=== PATIENT | female | born 1980 | race Caucasian/White ===

== ENCOUNTER 2019-07-20 10:53 | Emergency (ER) | payer OTHER, SELFPAY ==
[2019-07-20 11:05] VITALS: BP 137/77; PULSE 96; RESP 20; TEMP 37.2; O2SAT 98; BMI 41.1
--- NOTE | 2019-07-20 11:13 | ED_ITS ---
Entered by Amparo Lamar, acting as scribe for Essie Tolliver PA HPI - General Adult General: Chief complaint: General Medical Stated complaint: SORE THROAT Time Seen by Provider: 07/20/19 11:10 Source: patient and RN notes reviewed Mode of arrival: ambulatory Limitations: no limitations History of Present Illness: HPI narrative: 39 yo female presents to ED with complaints of a sore throat, headache, bilateral ear pain, intermittent fever and body aches. The patient's daughter was recently diagnosed with strep throat. The patient denies cough. MD complaint: sore throat Onset (ago): day(s) (2) Location: mouth Radiation: non-radiation Severity: severe Quality: aching and constant Pain Consistency: constant Relieving factors: none Exacerbating factors: none Associated symptoms: Reports fevers/chills and malaise; Deny chest pain, dyspnea, headache(s), nausea, rash, palpitations, syncope or vomiting Treatments prior to arrival: none Review of Systems Const: Reports: fever (subjective), chills, body aches and malaise Eyes: Denies: change in vision, blurry vision, photophobia, eye discomfort or eye discharge ENMT: Reports: enlarged tonsils and painful swallowing; Denies: swelling of lips/tongue, oral sores/lesions, ear discharge, nasal discharge, nasal congestion, post nasal drip or facial/sinus pain Card: Denies: chest pain, palpitations, irregular heart rhythm, edema, lightheadedness, syncope or pre-syncope Resp: Denies: shortness of breath, productive cough, non-productive cough or chest congestion GI: Denies: abdominal pain, nausea, vomiting or diarrhea Musc: Denies: neck pain or back pain Skin/Breast: Denies: rash Neuro: Denies: headache All/Imm: Denies: facial swelling or seasonal allergies PFSH ED PFSH: Statuses (acute, chronic, etc) shown below reflect problem list status as previously entered and may not be historically accurate Social History Smoking and tobacco status: never smoked Physical Exam Const: COMMON NORMALS: oriented x3, no limitations, alert and well nourished OTHER: looks like she doesn't feel well HENMT: COMMON NORMALS: normocephalic, head/scalp atraumatic, hearing grossly normal bilaterally, external ears normal, EAC's normal, TM's normal bilaterally, external nose normal and nasal mucous membranes and turbinates normal HEAD & SCALP: normocephalic and atraumatic FACE & SINUS: normal facial exam NOSE: external nose normal and nasal mucous membranes and turbinates normal EXTERNAL EAR: Yes external ears normal EXTERNAL AUDITORY CANAL: EAC's normal TYMPANIC MEMBRANE: TM's normal bilaterally MOUTH: oral and palatal mucosa normal THROAT: uvula midline and tonsils abnormal (bilateral erythema/swelling) Eye: COMMON NORMALS: PERRL and EOMs intact bilaterally PUPIL: Yes PERRL Neck/C-Spine: COMMON NORMALS: full ROM and no meningeal signs GENERAL: Yes lymphadenopathy (bilateral anterior cervical ) Resp: COMMON NORMALS: normal respiratory effort and clear to auscultation bilaterally AUSCULTATION: clear to auscultation bilaterally Cardio: COMMON NORMALS: regular rate and regular rhythm RATE: regular rate RHYTHM: regular rhythm Extremity: COMMON NORMALS: normal to inspection Neuro: COMMON NORMALS: oriented x3 SENSORIUM/ORIENTATION: Yes alert MEN INGEAL SIGNS: Yes no meningeal signs Skin: COMMON NORMALS: no rashes or lesions noted GENERAL SKIN EXAM: no rashes or lesions noted Course Vital Signs: Vital signs: Vital Signs Temperature 98.9 F 07/20/19 11:05 Pulse Rate 96 07/20/19 11:05 Respiratory Rate 20 H 07/20/19 11:05 Blood Pressure 137/77 07/20/19 11:05 Pulse Oximetry 98 07/20/19 11:05 MDM - General Adult Lab Data: Labs: Lab Results 07/20/19 07/20/19 Range/Units 11:20 11:20 Influenza Type A A g Negative (Negative) POC Influenza B Ag Negative (Negative) Group A Strep Rapi d Positive H (Negative) Discharge Plan Discharge Patient Disposition: Home, Self-Care Clinical Impression: Acute streptococcal pharyngitis Condition: Stable Discharge Orders: Discharge Order (Routine); Ordered 07/20/19 Ordered By: Essie Tolliver Referrals: Jim Albert DO [Family Provider] - Discharge Diet: Usual diet Discharge Activity: Increase activity as tolerated Coding Level of Care Code ED Inspector Eyeglass Frames for Chg Fwd The documentation recorded by the Brianda carcamo Valerie R accurately reflects the service I personally performed and the decisions made by Sharee zamudio Emily, DINA
[2019-07-20 11:37] LABS: Rapid Strep A Test Positive (Negative)
[2019-07-20 11:49] LABS: Influenza A by IFA Negative (Negative); Influenza B by IFA Negative (Negative)
[2019-07-20] MEDS: ibuprofen 600 mg Tablet PO (12:35)
[2019-07-20] MEDS: penicillin g (L-A) 1,200,000 unit/2 mL Syr 1200000 UNIT IM (12:35)
[2019-07-20 13:16] VITALS: PULSE 71; RESP 18; TEMP 37.9; O2SAT 96
== END 2019-07-20 13:17 | disposition home or self-care (01) ==
LOC: ER 12:09
PROVIDERS: Emergency Provider Physician Assistant; Family Provider Family Medicine
DX: J02.0 Streptococcal pharyngitis (principal)
CPT/HCPCS: 87804; 87880; 96372; 99282; 99283; J0561

== ENCOUNTER 2019-07-22 06:36 | Emergency (ER) | payer OTHER, SELFPAY ==
[2019-07-22 06:40] VITALS: BP 162/72; PULSE 91; RESP 18; TEMP 36.6; O2SAT 98; BMI 41.1
--- NOTE | 2019-07-22 06:49 | W.ED.GENADLT ---
HPI - General Adult General: Chief complaint: General Medical Stated complaint: DX WITH STREP AND NOT GETTING URSULA Time Seen by Provider: 07/22/19 06:49 History of Present Illness: HPI narrative: 39-year-old female seen 2 days ago with pharyngitis had a rapid strep test that was positive at that time flu test was negative patient was given a single dose of IM antibiotics. She presents today complaining of continued pain discomfort in her throat. She denies sweats chills or fever she is not had any rash. Associated symptoms: Deny chest pain, dyspnea, malaise, nausea, rash or vomiting Review of Systems Const: Denies: fever, chills, body aches, change in appetite, fatigue or malaise ENMT: Reports: throat pain, uvular edema, painful swallowing, hoarseness, nasal discharge and nasal congestion; Denies: ear pain Card: Denies: chest pain, edema, shortness of breath on exertion or shortness of breath when lying down Resp: Denies: shortness of breath, productive cough or non-productive cough GI: Denies: abdominal pain, nausea, vomiting, vomiting blood, coffee grounds in vomit, diarrhea, constipation, bloating, blood in stool or black tarry stool : Denies: flank pain, difficulty urinating, painful urination, urinary frequency or urinary urgency Skin/Breast: Denies: rash or itching PFSH ED PFSH: Statuses (acute, chronic, etc) shown below reflect problem list status as previously entered and may not be historically accurate Social History Smoking and tobacco status: never smoked Physical Exam Const: COMMON NORMALS: no apparent distress GENERAL APPEARANCE: cooperative and comfortable ORIENTATION/CONSCIOUSNESS: Yes awake, Yes oriented to person, Yes oriented to place and Yes oriented to time HENMT: COMMON NORMALS: normocephalic, head/scalp atraumatic, hearing grossly normal bilaterally, external ears normal, EAC's normal, TM's normal bilaterally, nasal mucous membranes and turbinates normal, moist oral mucous membranes and oropharynx normal HEAD & SCALP: normocephalic and atraumatic NOSE: nasal mucous membranes and turbinates normal EXTERNAL EAR: Yes external ears normal EXTERNAL AUDITORY CANAL: EAC's normal TYMPANIC MEMBRANE: TM's normal bilaterally THROAT: tonsils abnormal (Erythematous with exudate) bilateral and uvular edema Eye: COMMON NORMALS: PERRL, EOMs intact bilaterally, conjunctivae normal and no scleral icterus CONJUNCTIVA: Yes conjunctivae normal PUPIL: Yes PERRL Neck/C-Spine: COMMON NORMALS: full ROM, no lymphadenopathy, supple and no JVD Lymph: LYMPHATIC: no lymphadenopathy noted and no lymphedema noted Resp: COMMON NORMALS: normal respiratory effort, no retractions, no use of accessory muscles and clear to auscultation bilaterally AUSCULTATION: clear to auscultation bilaterally Cardio: COMMON NORMALS: no JVD, regular rate, regular rhythm and no murmurs RATE: regular rate RHYTHM: regular rhythm GI: COMMON NORMALS: soft to palpation and no hepatosplenomegaly AUSCULTATION: Yes normoactive bowel sounds PALPATION: Yes soft, No tender, No guarding and Yes no hepatosplenomegaly Extremity: COMMON NORMALS: normal to inspection, normal capillary refill, no clubbing, cyanosis or edema, no calf tenderness and no pedal edema Neuro: SENSORIUM/ORIENTATION: Yes oriented to person, Yes oriented to place and Yes oriented to time Skin: COMMON NORMALS: no rashes or lesions noted GENERAL SKIN EXAM: no rashes or lesions noted Course ED course: Patient given Toradol dexamethasone and clindamycin. We will go ahead and discharge her home with prednisone p.o. and a course of amoxicillin. Vital Signs: Vital signs: Vital Signs Temperature 97.9 F 07/22/19 06:40 Pulse Rate 80 07/22/19 10:39 Respiratory Rate 17 07/22/19 10:39 Blood Pressure 120/75 07/22/19 10:39 Pulse Oximetry 97 07/22/19 10:39 MDM - General Adult Lab Data: Labs: Lab Results 07/22/19 07/22/19 07/22/19 Range/Units 07:15 07:22 07:22 WBC 13.3 H (4.0-10.0) 10^3/ uL RBC 3.92 L (4.1-5.3) 10^6/u L Hgb 11.9 (11.5-15.3) g/dL Hct 36.7 L (37.0-47.0) % MCV 93.6 (81-99) fL MCH 30.4 (28.0-34.0) pg MCHC 32.4 (30.0-36.0) g/dL RDW 12.2 (12.1-15.1) % Plt Count 232 (130-400) 10^3/c mm MPV 10.3 (7.4-10.4) fL Neut % (Auto) 76.5 % Lymph % (Auto) 15.6 % Kidder % (Auto) 6.6 % Eos % (Auto) 0.6 % Baso % (Auto) 0.2 % Neut # (Auto) 10.2 H (1.8-7.7) 10^3/u L Lymph # (Auto) 2.1 (0.8-4.8) 10^3/u L Kidder # (Auto) 0.9 (0.2-0.9) 10^3/u L Eos # (Auto) 0.1 (0.0-0.8) 10^3/u L Baso # (Auto) 0.0 (0.0-0.1) 10^3/u L Nucleated RBC % (a uto) 0 % Nucleated RBCs # 0.0 /100WBC Sodium 137 (136-145) mmol/L Potassium 3.9 (3.5-5.1) mmol/L Chloride 102 (98-107) mmol/L Carbon Dioxide 24 (22-29) mmol/L Anion Gap 14.9 (5-19) BUN 14 (6-20) mg/dL Creatinine 0.7 (0.5-0.9) mg/dL GFR Calculation 93.6 (90-130) mL/min Glucose 93 (65-115) mg/dL Calcium 9.8 (8.5-10.5) mg/dL Total Bilirubin 0.5 (0.15-1.2) mg/dL AST 18 (0-32) U/L ALT 30 (0-33) U/L Alkaline Phosphata se 202 H (35-105) IU/L Total Protein 8.1 (6.6-8.7) g/dL Albumin 3.7 (3.5-5.2) g/dL Globulin 4.4 (1.3-4.6) g/dL Monoscreen (Negative) Influenza Type A A g Negative (Negative) POC Influenza B Ag Negative (Negative) 07/22/19 Range/Units 07:22 WBC (4.0-10.0) 10^3/ uL RBC (4.1-5.3) 10^6/u L Hgb (11.5-15.3) g/dL Hct (37.0-47.0) % MCV (81-99) fL MCH (28.0-34.0) pg MCHC (30.0-36.0) g/dL RDW (12.1-15.1) % Plt Count (130-400) 10^3/c mm MPV (7.4-10.4) fL Neut % (Auto) % Lymph % (Auto) % Kidder % (Auto) % Eos % (Auto) % Baso % (Auto) % Neut # (Auto) (1.8-7.7) 10^3/u L Lymph # (Auto) (0.8-4.8) 10^3/u L Kidder # (Auto) (0.2-0.9) 10^3/u L Eos # (Auto) (0.0-0.8) 10^3/u L Baso # (Auto) (0.0-0.1) 10^3/u L Nucleated RBC % (a uto) % Nucleated RBCs # /100WBC Sodium (136-145) mmol/L Potassium (3.5-5.1) mmol/L Chloride (98-107) mmol/L Carbon Dioxide (22-29) mmol/L Anion Gap (5-19) BUN (6-20) mg/dL Creatinine (0.5-0.9) mg/dL GFR Calculation (90-130) mL/min Glucose (65-115) mg/dL Calcium (8.5-10.5) mg/dL Total Bilirubin (0.15-1.2) mg/dL AST (0-32) U/L ALT (0-33) U/L Alkaline Phosphata se (35-105) IU/L Total Protein (6.6-8.7) g/dL Albumin (3.5-5.2) g/dL Globulin (1.3-4.6) g/dL Monoscreen Negative (Negative) Influenza Type A A g (Negative) POC Influenza B Ag (Negative) Discharge Plan Discharge Patient Disposition: Home, Self-Care Clinical Impression: Acute streptococcal pharyngitis Condition: Stable Prescriptions: New amoxicillin 875 mg tablet 875 mg PO BID Qty: 20 RF: 0 Medrol (Ankur) 4 mg tablets,dose pack See Rx Instructions .ROUTE .COMPLEX Qty: 21 RF: 0 Discharge Orders: Discharge Order (Routine); Ordered 07/22/19 Ordered By: Jim Albert Referrals: Jim Albert, DO [Emergency Provider] - Discharge Diet: Full LIquid Discharge Activity: Increase activity as tolerated Activity Restrictions/Additional Instructions: Return if has further problems Discharge Date/Time: 07/22/19 10:40 Coding Level of Care Code ED Production Assembly Operator for Florencio Amos
[2019-07-22] MEDS: dexamethasone 10 mg/mL INJ IVP (07:29)
[2019-07-22] MEDS: sodium chloride 0.9% 1,000 ML 999 ML IV (07:29)
[2019-07-22] MEDS: ondansetron 2 mg/ML SDV 2 mL 4 MG IVP (07:29)
[2019-07-22] MEDS: ketorolac 30 mg/mL INJ IVP (07:30)
[2019-07-22 07:33] LABS: Basophils % 0.2 %; Eosinophils # 0.1 10^3/uL (0.0-0.8); Eosinophils % 0.6 %; Hematocrit 36.7 % (37.0-47.0); Hemoglobin 11.9 g/dL (11.5-15.3); Lymphocytes # 2.1 10^3/uL (0.8-4.8); Lymphocytes % 15.6 %; Mean Corpuscular HGB Conc 32.4 g/dL (30.0-36.0); Mean Corpuscular Hemoglobin 30.4 pg (28.0-34.0); Mean Corpuscular Volume 93.6 fL (81-99); Mean Platelet Volume 10.3 fL (7.4-10.4); Monocytes # 0.9 10^3/uL (0.2-0.9); Monocytes % 6.6 %; Neutrophils # 10.2 10^3/uL (1.8-7.7); Neutrophils % 76.5 %; Nucleated Red Blood Cells % 0 %; Platelet Count 232 10^3/cmm (130-400); Red Blood Count 3.92 10^6/uL (4.1-5.3); Red Cell Distribution Width 12.2 % (12.1-15.1); White Blood Count 13.3 10^3/uL (4.0-10.0)
[2019-07-22] MEDS: clindamycin 900 MG/50 ML PREMIX 100 MG IV (07:40)
[2019-07-22 07:51] LABS: Monoscreen Negative (Negative)
[2019-07-22 07:56] VITALS: PULSE 71; RESP 16; O2SAT 96
[2019-07-22 07:57] LABS: Influenza A by IFA Negative (Negative); Influenza B by IFA Negative (Negative)
[2019-07-22 07:58] LABS: Alanine Aminotransferase 30 U/L (0-33); Albumin Level 3.7 g/dL (3.5-5.2); Alkaline Phosphatase 202 IU/L (35-105); Anion Gap 14.9 (5-19); Aspartate Amino Transferase 18 U/L (0-32); Blood Urea Nitrogen 14 mg/dL (6-20); Calcium 9.8 mg/dL (8.5-10.5); Carbon Dioxide 24 mmol/L (22-29); Chloride 102 mmol/L (98-107); Globulin 4.4 g/dL (1.3-4.6); Glomerular Filtration Rate 93.6 mL/min (90-130); Potassium 3.9 mmol/L (3.5-5.1); Sodium 137 mmol/L (136-145); Total Bilirubin 0.5 mg/dL (0.15-1.2); Total Protein 8.1 g/dL (6.6-8.7)
[2019-07-22 08:42] VITALS: BP 109/61; PULSE 70; RESP 14; O2SAT 97
[2019-07-22] MEDS: sodium chlor 0.9% + KCl 20 mEq 20 MEQ/1,000 ML BAG 125 MEQ IV (09:07)
[2019-07-22 09:20] LABS: Glucose 93 mg/dL (65-115)
[2019-07-22] MEDS: cetacaine Spray 5 gm Can 1 SPRAY TOPICAL (09:30)
[2019-07-22 09:48] VITALS: BP 115/63; PULSE 73; RESP 16; O2SAT 98
[2019-07-22 10:39] VITALS: BP 120/75; PULSE 80; RESP 17; O2SAT 97
== END 2019-07-22 10:40 | disposition home or self-care (01) ==
PROVIDERS: Emergency Provider Family Medicine; Family Provider Family Medicine
DX: J02.0 Streptococcal pharyngitis (principal)
CPT/HCPCS: 80053; 85025; 86308; 87804; 96360; 96361; 96365; 96366; 96367; 96375; 99283; J1100; J1885; J2405; J3490; J7030

== ENCOUNTER 2019-12-03 20:00 | Outpatient (CLI) | payer OTHER, SELFPAY | END 2019-12-03 20:01 | disposition home or self-care (01) | LOC: SLEEP 12-04 08:26 | PROVIDERS: Family Provider Family Medicine; Visit Provider Nurse Practitioner | DX: R06.83 Snoring (principal); R53.83 Other fatigue | CPT/HCPCS: 95810 ==

== ENCOUNTER 2020-02-17 08:14 | Outpatient (CLI) | payer OTHER, SELFPAY ==
--- NOTE | 2020-02-17 08:23 | MM_ITS ---
WS: [id number] BILATERAL DIGITAL DIAGNOSTIC MAMMOGRAM MAMMOGRAPHY WITH CAD CLINICAL INFORMATION: LEFT BREAST TENDER AND MASS HISTORY: Left breast soreness and lumps. History of nipple piercing. COMPARISON: None. TECHNIQUE: Bilateral CC, MLO, and ML views. FINDINGS: Scattered fibroglandular densities bilaterally. Palpable marker upper outer left breast. Increased tr abecular thickening subareolar left breast near the palpable marker. Ultrasound is pending. Lymph nod e left axillary tail. Right breast is unremarkable. ULTRASOUND BREAST LEFT TECHNIQUE: Ultrasound left breast focused area of concern. CLINICAL INFORMATION: LEFT BREAST TENDER AND MASS COMPARISON: None. FINDINGS: Ultrasound left breast at the 12, 3, and 6:00 position in the areas of concern as well as subareolar. Dense heterogeneous parenchymal tissue deep to the left nipple area of concern. No well-defined cys tic or solid lesion. Area of dense parenchymal tissue measures approximately 2.6 x 3.0 x 1.7 CM. Jose Antonio mmend correlation for mastitis. Recommend 6 month follow-up left diagnostic mammography and ultrasoun d to confirm stability. MM/[id number] IMPRESSION: BI-RADS: 3-Probably Benign FOLLOW UP: 6 Month Follow-up
== END 2020-02-17 08:15 | disposition home or self-care (01) ==
LOC: RADSHAW 08:16
PROVIDERS: PCP Nurse Practitioner; Visit Provider Nurse Practitioner
DX: N64.4 Mastodynia (principal); N63.25 Unspecified lump in the left breast, overlapping quadrants
CPT/HCPCS: 76642; 77066

== ENCOUNTER → 2020-03-02 14:11 | Outpatient (BNVA) | payer OTHER, SELFPAY | PROVIDERS: PCP Nurse Practitioner; Visit Provider Nurse Practitioner Family | DX: Z11.59 Encounter for screening for other viral diseases (principal) | CPT/HCPCS: 87635 ==

== ENCOUNTER → 2020-03-10 17:37 | Outpatient (BNVA) | payer OTHER, SELFPAY | PROVIDERS: PCP Nurse Practitioner; Visit Provider Nurse Practitioner Family | DX: Z11.59 Encounter for screening for other viral diseases (principal) | CPT/HCPCS: 87635 ==

== ENCOUNTER → 2020-03-17 07:37 | Outpatient (BNVA) | payer OTHER, SELFPAY | PROVIDERS: PCP Nurse Practitioner; Visit Provider Nurse Practitioner Family | DX: Z11.59 Encounter for screening for other viral diseases (principal) | CPT/HCPCS: 87635 ==

== ENCOUNTER → 2020-03-25 08:33 | Outpatient (BNVA) | payer OTHER, SELFPAY | PROVIDERS: PCP Nurse Practitioner; Visit Provider Nurse Practitioner Family | DX: Z11.59 Encounter for screening for other viral diseases (principal) | CPT/HCPCS: 87635 ==

== ENCOUNTER → 2020-04-01 13:24 | Outpatient (BNVA) | payer OTHER, SELFPAY | PROVIDERS: PCP Nurse Practitioner; Visit Provider Nurse Practitioner Family | DX: Z11.59 Encounter for screening for other viral diseases (principal) | CPT/HCPCS: 87635 ==

== ENCOUNTER → 2020-04-07 17:45 | Outpatient (BNVA) | payer OTHER, SELFPAY | PROVIDERS: PCP Nurse Practitioner; Visit Provider Nurse Practitioner Family | DX: Z20.828 Contact with and (suspected) exposure to other viral communicable diseases (principal) | CPT/HCPCS: 87635 ==

== ENCOUNTER → 2020-04-14 16:59 | Outpatient (BNVA) | payer OTHER, SELFPAY | PROVIDERS: PCP Nurse Practitioner; Visit Provider Nurse Practitioner Family | DX: Z11.59 Encounter for screening for other viral diseases (principal) | CPT/HCPCS: 87635 ==

== ENCOUNTER → 2020-04-22 12:08 | Outpatient (BNVA) | payer OTHER, SELFPAY | PROVIDERS: PCP Nurse Practitioner; Visit Provider Nurse Practitioner Family | DX: Z11.59 Encounter for screening for other viral diseases (principal) | CPT/HCPCS: 87635 ==

== ENCOUNTER 2021-05-09 11:51 | Emergency (ER) | payer OTHER, SELFPAY ==
[2021-05-09 12:03] VITALS: BP 145/85; PULSE 93; RESP 16; TEMP 36.4; O2SAT 96; BMI 44.2
[2021-05-09 12:13] VITALS: BP 145/85; PULSE 93; RESP 18; O2SAT 96
--- NOTE | 2021-05-09 12:36 | ED_ITS ---
HPI - Extremity Problem General: Chief complaint: Extremity Injury, Lower Stated complaint: RIGHT CALF INJURY Time Seen by Provider: 05/09/21 12:12 Source: patient and family Mode of arrival: ambulatory Limitations: no limitations History of Present Illness: HPI Narrative: Patient is a 40-year-old female who presents to ED today for evaluation of a right calf injury. Patient tells me yesterday evening she was seated and when she went to stand up she immediately felt a pop in her right calf and began having pain and swelling. Pain seems to be worse with ambulation and foot flexion. She denies numbness, tingling, loss of sensation to extremity. She has not noticed any color or temperature changes. She has no other pain or complaints at this time. MD Complaint: extremity pain and extremity swelling Onset (ago): hour(s) (yesterday evening ) Pain Consistency: constant Location: right and lower extremity Radiation: none Relieving factors: immobilization Exacerbating factors: weight bearing and walking Associated symptoms: Reports no associated symptoms; Deny chest pain, fever(s) or rash Review of Systems Const: Denies: fever(s) Card: Denies: chest pain Resp: Denies: dyspnea Musc: Reports: extremity pain and extremity swelling; Denies: neck pain, back pain, joint pain, joint swelling, joint redness, joint warmth or limited range of motion Skin/Breast: Denies: rash Neuro: Reports: difficulty walking (secondary to pain); Denies: numbness in extremities, weakness in extremities or sensory changes [facility] ED PFSH: Social History Smoking and tobacco status: never smoked Physical Exam Const: COMMON NORMALS: no acute distress, patient oriented x3, no limitations and alert GENERAL APPEARANCE: cooperative NUTRITIONAL APPEARANCE: obese ORIENTATION/CONSCIOUSNESS: Yes awake, Yes oriented to person, Yes oriented to place and Yes oriented to time Extremity: GENERAL: Yes normal exam except as noted RIGHT LOWER EXTREMITY: Yes lower leg (see below) OTHER: TTP medial gastrocnemius; pain with plantar flexion; negative Scruggs's; no obvious masses/swelling noted; no ecchymosis; sensory intact; normal cap refill and DP/PT pulses Neuro: COMMON NORMALS: patient oriented x3 SENSORIUM/ORIENTATION: Yes alert, Yes oriented to person, Yes oriented to place and Yes oriented to time Skin: COMMON NORMALS: no rashes or lesions noted GENERAL SKIN EXAM: no rashes or lesions noted TRAUMA: no lacerations or abrasions Course Vital Signs: Vital signs: Vital Signs Temperature 97.6 F 05/09/21 12:03 Pulse Rate 93 05/09/21 12:13 Respiratory Rate 18 05/09/21 12:13 Blood Pressure 145/85 05/09/21 12:13 Pulse Oximetry 96 05/09/21 12:13 MDM - Extremity (Nontraumatic) MDM Narrative: Medical decision making narrative: DDx-medial head gastrocnemius tear versus plantaris tear/sprain. Will be placed in tall CAM walker with heel lift and have her follow up with orthopedics. Recommend ice/elevation. Discharge Plan Discharge Patient Disposition: Home Clinical Impression: Gastrocnemius muscle tear Qualifiers: Encounter type: initial encounter Laterality: right Qualified Code(s): S86.111A - Strain of other muscle(s) and tendon(s) of posterior muscle group at lower leg level, right leg, initial encounter Condition: Stable Prescriptions: New hydrocodone-acetaminophen 5-325 mg tablet 1 tab PO Q6H PRN (Reason: pain) Qty: 14 RF: 0 No Action multivitamin Tablet 1 tab PO DAILY RF: 0 aripiprazole 2 mg tablet 2 mg PO DAILY RF: 0 Lactobacillus acidophilus 1 billion cell capsule 10 mg PO DAILY RF: 0 venlafaxine 75 mg tablet 225 mg PO DAILY RF: 0 Discharge Orders: Discharge ED (Routine); Ordered 05/09/21 Ordered By: Essie Tolliver Referrals: Cecelia Hanna FNP [Primary Care Provider] - Patient Instructions: Opioid Safety Activity Restrictions/Additional Instructions: [facility] committed to fighting the nationwide opiate epidemic. We are providing ALL patients with information regarding opiate safety. If you received opiate pain medication during your stay or if you received a prescription for opiate pain medication-please review this handout. If not, you may disregard. Thank you. As we discussed case management should contact you in regards to orthopedic foll ow-up appointment. Ice and elevate the extremity is much as possible to help with swelling. Stay in your cam walker until told otherwise by orthopedics. Coding Level of Care Code ED Heater Operator Helper for Florencio Amos
--- NOTE | 2021-05-09 13:42 | DCPLANNER ---
Addendum entered by Denae García 05/09/21 14:22: retail assistant store manager sent patients information to [facility], [facility], so that the authorization process could be started. Original Note: retail assistant store manager had message to schedule a follow up appointment for patient with ortho. retail assistant store manager called the ortho clinic, spoke with Effie, gave clinic patients information. retail assistant store manager was told that patients information would be printed and reviewed. Clinic will call patient with appointment information.
--- NOTE | 2021-05-29 06:54 | DCPLANNER ---
Patient had a follow up appointment scheduled for 05.23.21 at ortho - patient did not attend appointment.
== END 2021-05-09 14:09 | disposition home or self-care (01) ==
PROVIDERS: Emergency Provider Physician Assistant; PCP Nurse Practitioner
DX: S86.111A Strain of other muscle(s) and tendon(s) of posterior muscle group at lower leg level, right leg, initial encounter (principal)
CPT/HCPCS: 99282

== ENCOUNTER 2021-09-21 13:37 | Emergency (ER) | payer OTHER, SELFPAY ==
[2021-09-21 14:05] VITALS: BP 138/94; PULSE 65; RESP 18; TEMP 37.2; O2SAT 98; BMI 45.7
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
[2021-09-21] MEDS: orphenadrine 30 mg/mL Inj 2 mL 60 MG IM (15:03)
[2021-09-21] MEDS: ketorolac 60 mg/2 mL INJ IM (15:03)
== END 2021-09-21 16:47 | disposition home or self-care (01) ==
PROVIDERS: Emergency Provider Physician Assistant; PCP Nurse Practitioner
DX: S13.4XXA Sprain of ligaments of cervical spine, initial encounter (principal); V43.52XA Car driver injured in collision with other type car in traffic accident, initial encounter
CPT/HCPCS: 70450; 72125; 72128; 96372; 99283; J1885; J2360

== ENCOUNTER → 2021-11-29 09:00 | Outpatient (BNVA) | payer OTHER, SELFPAY | PROVIDERS: PCP Nurse Practitioner; Visit Provider Obstetrics & Gynecology | DX: Z12.4 Encounter for screening for malignant neoplasm of cervix (principal) | CPT/HCPCS: 87624 ==

== ENCOUNTER → 2024-12-17 10:59 | Outpatient (BNVA) | payer OTHER, MEDICAID, SELFPAY | PROVIDERS: PCP Nurse Practitioner; Visit Provider Nurse Practitioner Women's Health | DX: Z30.8 Encounter for other contraceptive management (principal) | CPT/HCPCS: 81025; 87624 ==

== ENCOUNTER → 2025-02-02 12:45 | Outpatient (BNVA) | payer OTHER, MEDICAID, SELFPAY | PROVIDERS: PCP Nurse Practitioner; Visit Provider Nurse Practitioner Family | DX: S30.91XA Unspecified superficial injury of lower back and pelvis, initial encounter (principal); Q82.5 Congenital non-neoplastic nevus; D48.5 Neoplasm of uncertain behavior of skin; X58.XXXA Exposure to other specified factors, initial encounter | CPT/HCPCS: 11102; 99203 ==